=== PATIENT | male | born 1995 | race Caucasian/White ===

== ENCOUNTER 2025-09-14 15:22 | Emergency (ER) | payer MEDICAID ==
[~2025-09-14] VITALS: Ht 167.6 cm; Wt 78.0 kg
[2025-09-14 15:32] VITALS: O2SAT 99
[2025-09-14] MEDS ORDERED: CLIN-194 MT (19:56)
[2025-09-14 20:24] VITALS: BP 130/90; PULSE 77; RESP 18; TEMP 36.9; O2SAT 99
== END 2025-09-14 20:29 | disposition home or self-care (01) ==
LOC: ER 15:22
DX: L02.91 Cutaneous abscess, unspecified (principal)
CPT/HCPCS: 99283